=== PATIENT | male | born 1990 | race Caucasian/White ===

== ENCOUNTER 2018-03-17 08:50 | Day surgery (SDC) | payer OTHER ==
[~2018-03-17] VITALS: Ht 188 cm; Wt 104.6 kg
[2018-03-17 09:26] VITALS: BP 133/75; PULSE 63; TEMP 97.6
[2018-03-17] MEDS ORDERED: PERCOCET 325 MG1 TA2 PO (09:32)
[2018-03-17] MEDS ORDERED: LEVAQUIN 5500 MG/TA1 PO (09:33)
[2018-03-17 12:40] VITALS: BP 128/572; PULSE 59; TEMP 97.8
[2018-03-17 12:55] VITALS: BP 123/72; PULSE 51
[2018-03-17] MEDS ORDERED: PYRIDIUM 100MG100 MG PO (13:12)
[2018-03-17] MEDS ORDERED: NATURAL SENNA8.6 MG PO (13:12)
[2018-03-17] MEDS ORDERED: NORCO 325 MG-51 TAB PO (13:13)
[2018-03-17 13:30] VITALS: BP 119/68; PULSE 51
[2018-03-17 14:58] VITALS: BP 111/72; PULSE 61
== END 2018-03-17 14:01 | disposition home or self-care (01) ==
LOC: SDCO 08:50
DX: N20.0 Calculus of kidney (principal); Z87.442 Personal history of urinary calculi
CPT/HCPCS: C1758; C1769; C2617; J1885; J2405; J2704; J3010; J7120